=== PATIENT | male | born 1995 | race Caucasian/White ===

== ENCOUNTER 2017-08-26 12:23 | Emergency (ER) | payer BC ==
[2017-08-26 12:45] VITALS: BP 125/66
[2017-08-26] MEDS ORDERED: Penicillin G Benzathine 2.4MU* 2,400,000 UNITS/4 ML SYR IM ONE (13:03)
--- NOTE | 2017-08-26 13:06 | UC ---
Complaint Male HPI - HPI Summary HPI Summary: pt refer from health dept for tx of + syphilis, RPR titer and rectal/oral GC/ Chlamydia testing. denies any s/s's. was dx on routine std testing. also had a neg HIV. the urine GC/Chlamydia urine was already done by [facility] and results should be available today. - History of Current Complaint Hx Obtained From: Patient Pain Intensity: 0 Aggravating Factor(s): Nothing Alleviating Factor(s): Nothing Associated Signs And Symptoms: Negative: Back Pain, Fever, Dysuria, Rectal Pain , Penile Swelling, Penile Discharge - Risk Factors Testicular Torsion: Negative <Samia Navas - Last Filed: 08/26/17 13:36> <Queenie Marshall - Last Filed: 08/26/17 13:59> - History of Current Complaint Stated Complaint: PERSONAL Time Seen by Provider: 08/26/17 12:38 - Allergies/Home Medications Allergies/Adverse Reactions: Allergies Allergy/AdvReac Type Severity Reaction Status Date / Time No Known Allergies Allergy Verified 08/26/17 12:35 Home Medications: Home Medications Dextroamphetamine/Amphetamine [Adderall 10 mg-] 1 tab PO DAILY 08/26/17 [ History Confirmed 08/26/17] PMH/Surg Hx/FS Hx/Imm Hx - Additional Past Medical History Additional PMH: ADHD - Surgical History Surgical History: None - Family History Known Family History: Positive: Other - healthy - Social History Occupation: Student - just graduated Alcohol Use: Occasionally Substance Use Type: Marijuana Substance Use Comment - Amount & Last Used: 5-6 times weekly Smoking Status (MU): Never Smoked Tobacco - Immunization History Vaccination Up to Date: Yes <Samia Navas - Last Filed: 08/26/17 13:36> Review of Systems Constitutional: Negative Skin: Negative Eyes: Negative ENT: Negative Respiratory: Negative Cardiovascular: Negative Gastrointestinal: Negative Genitourinary: Negative Motor: Negative Neurovascular: Negative Musculoskeletal: Negative Neurological: Negative Psychological: Negative Is Patient Immunocompromised?: No All Other Systems Reviewed And Are Negative: Yes <Samia Navas - Last Filed: 08/26/17 13:36> Physical Exam Triage Information Reviewed: Yes Appearance: Well-Appearing Vital Signs: Initial Vital Signs Temp 98.4 F 08/26/17 12:37 Pulse 93 08/26/17 12:37 Resp 16 05/14/18 12:37 BP 125/66 08/26/17 12:37 Pulse Ox 100 08/26/17 12:37 Vital Signs Reviewed: Yes Eyes: Positive: Conjunctiva Clear ENT: Positive: Pharynx normal, TMs normal. Negative: Nasal congestion, Nasal drainage Neck: Positive: Supple, Nontender, No Lymphadenopathy Respiratory: Positive: Lungs clear, Normal breath sounds Cardiovascular: Positive: RRR, No Murmur Abdomen Description: Positive: Nontender, No Organomegaly, Soft, Other: - no inguinal adenopathy. rectum unremarkable. Male Genital Exam: Positive: Normal Genitalia, No Hernia Musculoskeletal: Positive: ROM Intact Neurological: Positive: Alert Psychological: Positive: Age Appropriate Behavior Skin Exam: Normal <Samia Navas - Last Filed: 08/26/17 13:36> Vital Signs: Initial Vital Signs Temp 98.4 F 08/26/17 12:37 Pulse 93 08/26/17 12:37 Resp 16 08/26/17 12:37 BP 125/66 08/26/17 12:37 Pulse Ox 100 08/26/17 12:37 <Queenie Marshall - Last Filed: 08/26/17 13:59> Complaint Male Course/Dx - Differential Dx/Diagnosis Provider Diagnoses: syphilis. std screening <Samia Navas - Last Filed: 08/26/17 13:36> Discharge - Sign-Out/Discharge Documenting (check all that apply): Discharge/Admit/Transfer - Billing Disposition and Condition Condition: STABLE Disposition: HOME <Samia Navas - Last Filed: 08/26/17 13:36> - Billing Disposition and Condition Condition: STABLE Disposition: HOME <Queenie Marshall - Last Filed: 08/26/17 13:59> - Discharge Plan Condition: Stable Disposition: HOME Patient Education Materials: Sexually Transmitted Diseases (ED), Syphilis (ED) Referrals: Non Staff,Doctor [Primary Care Provider] - Additional Instructions: FOLLOW UP WITH THE HEALTH DEPT DIRECTED. Attestation Statement User Type: Provider - I was available for consult. This patient was seen by the JUDI. The patient was not presented to, seen by, or examined by me. -Karin <Queenie Marshall - Last Filed: 08/26/17 13:59> Addendum entered and electronically signed by Samia Navas PA 08/26/17 13:36 :
== END 2017-08-26 14:14 | disposition home or self-care (01) ==
LOC: UCCORT 12:23
DX: A53.9 Syphilis, unspecified (principal); Z11.3 Encounter for screening for infections with a predominantly sexual mode of transmission
CPT/HCPCS: 36415; 86592; 87491; 87591; 96372; 99201; G0463; J0561